=== PATIENT | male | born 1950 | race Caucasian/White ===

== ENCOUNTER → 2018-03-09 08:02 | Outpatient (CLI) | payer OTHER, SELFPAY ==
--- NOTE | 2018-03-09 | DI.US.S_ITS ---
PROCEDURE: US ABD AORTA ANEURYSM SCREEN INDICATIONS: SCREENING TECHNIQUE: Real time scanning was performed of the aorta and iliac arteries, with image documentation. COMPARISON: None. FINDINGS: Aorta: Proximal aortic diameter measures 2.0 cm. Mid-aorta measures 1.8 cm. Distal aortic diameter is 1.9 cm. Iliac arteries: Right common iliac artery measures 1.0 cm. Left common iliac artery measures 1.1 cm. IMPRESSION: No abdominal aortic aneurysm found, iliac arteries are normal in caliber, no dissection identified. Dictated by: Jey Dia M.D. on 03/09/2018 at 9:01 Approved by: Jey Dia M.D. on 03/09/2018 at 9:03
== END ==
PROVIDERS: Visit Provider Family Medicine
DX: Z13.6 Encounter for screening for cardiovascular disorders (principal)
CPT/HCPCS: 76706

== ENCOUNTER → 2019-03-08 14:29 | Outpatient (CLI) | payer OTHER, SELFPAY ==
[2019-03-08 15:11] LABS: Alanine Aminotransferase 47 IU/L (21-72); Albumin 4.4 g/dL (3.5-5.0); Albumin Globulin Ratio 1.6 (1.0-2.8); Alkaline Phosphatase 68 U/L (38-126); Aspartate Aminotransferase 34 IU/L (17-59); BUN Creatinine Ratio 22.2 (6-22); Bilirubin Total 0.4 mg/dL (0.2-1.3); Blood Urea Nitrogen 20 mg/dL (9-20); Calcium 9.3 mg/dL (8.4-10.2); Carbon Dioxide 26 mmol/L (22-32); Chloride 103 mmol/L (98-107); Creatine Kinase 360 U/L (55-170); Estimated Glomerular Filt Rate > 60.0 mL/min (>60); Globulin 2.7 g/dL (1.7-4.1); Glucose 87 mg/dL (80-110); HEMOLYSIS < 15 (0-50); Potassium 4.2 mmol/L (3.4-5.1); Sodium 138 mmol/L (137-145); Total Protein 7.1 g/dL (6.3-8.2)
[2019-03-08 15:15] LABS: High Sensitivity CRP - Cardiac 2.6 mg/L (1.0-3.0)
== END ==
PROVIDERS: Visit Provider Family Medicine
DX: I10 Essential (primary) hypertension (principal); E78.5 Hyperlipidemia, unspecified
CPT/HCPCS: 36415; 80053; 82550; 86140

== ENCOUNTER → 2019-04-19 10:18 | Outpatient (CLI) | payer OTHER, SELFPAY ==
[2019-04-19 11:11] LABS: Alanine Aminotransferase 59 IU/L (21-72); Albumin 4.6 g/dL (3.5-5.0); Albumin Globulin Ratio 1.8 (1.0-2.8); Alkaline Phosphatase 72 U/L (38-126); Aspartate Aminotransferase 46 IU/L (17-59); Bilirubin Total 0.8 mg/dL (0.2-1.3); Bilirubin Unconjugated 0.6 mg/dL (0.0-1.1); Cholesterol 182 mg/dL (140-199); Globulin 2.6 g/dL (1.7-4.1); HDL Cholesterol 56 mg/dL (40-60); HEMOLYSIS < 15 (0-50); LDL Cholesterol Calculated 112 mg/dL (<100); Total Protein 7.2 g/dL (6.3-8.2); Triglycerides 69 mg/dL (35-150)
== END ==
PROVIDERS: PCP Family Medicine; Visit Provider Family Medicine
DX: E78.5 Hyperlipidemia, unspecified (principal); I10 Essential (primary) hypertension
CPT/HCPCS: 36415; 80061; 80076

== ENCOUNTER → 2020-03-22 09:02 | Outpatient (CLI) | payer MEDICARE, SELFPAY ==
[2020-03-22 10:06] LABS: Alanine Aminotransferase 40 IU/L (<50); Albumin 4.6 g/dL (3.5-5.0); Albumin Globulin Ratio 1.5 (1.0-2.8); Alkaline Phosphatase 70 U/L (38-126); Aspartate Aminotransferase 34 IU/L (17-59); BUN Creatinine Ratio 20.5 (6-22); Bilirubin Total 0.6 mg/dL (0.2-1.3); Blood Urea Nitrogen 18 mg/dL (9-20); Calcium 9.5 mg/dL (8.4-10.2); Carbon Dioxide 28 mmol/L (22-32); Chloride 104 mmol/L (98-107); Cholesterol 190 mg/dL (140-199); Estimated Glomerular Filt Rate > 60.0 mL/min (>60); Glucose 95 mg/dL (80-110); HDL Cholesterol 49 mg/dL (40-60); HEMOLYSIS < 15 (0-50); LDL Cholesterol Calculated 111 mg/dL (<100); Potassium 4.3 mmol/L (3.4-5.1); Sodium 138 mmol/L (137-145); Total Protein 7.6 g/dL (6.3-8.2); Triglycerides 150 mg/dL (35-150)
[2020-03-23 11:10] LABS: PSA Free % 26.3 % (.); PSA, Total 0.8 ng/mL (0.0-4.0)
== END ==
PROVIDERS: PCP Family Medicine; Referring Provider Family Medicine; Visit Provider Family Medicine
DX: E78.5 Hyperlipidemia, unspecified (principal); Z13.1 Encounter for screening for diabetes mellitus; Z12.5 Encounter for screening for malignant neoplasm of prostate
CPT/HCPCS: 36415; 80053; 80061; 84153; 84154

== ENCOUNTER → 2020-11-26 11:53 | Outpatient (CLI) | payer MEDICARE, SELFPAY ==
--- NOTE | 2020-11-26 12:48 | DI.CT.S_ITS ---
PROCEDURE: CT CHEST WO CON INDICATIONS: Solitary pulmonary nodule TECHNIQUE: Noncontrast 5 mm thick sections acquired from the pulmonary apices to the posterior costophrenic angles. 1 mm lung window, 5 mm thick coronal and sagittal and 7 mm axial MIP reformats were then acquired. For radiation dose reduction, the following was used: automated exposure control, adjustment of mA and/or kV according to patient size. COMPARISON: [facility], CT, CT LOW DOSE LUNG CA SCREENING, 03/02/2019, 11:09. FINDINGS: Image quality: Excellent. Lungs and pleura: No acute air space opacities. No pleural effusions or pneumothorax. Central and peripheral airways are patent and normal in caliber. Mediastinum: Heart size is normal. No pericardial effusion. No mediastinal adenopathy by size criteria. Thoracic aorta and central pulmonary arteries are normal in size. Esophagus is normal in caliber. No hiatal hernia. Bones and chest wall: No suspicious bony lesions. No vertebral body compression fractures. No axillary or supraclavicular adenopathy by size criteria. Thyroid gland is unremarkable. Abdomen: Visualized upper abdominal solid organs and bowel loops appear normal in the absence of contrast. IMPRESSION: 1. No significant pulmonary nodule. Right upper lobe calcified granuloma. 2. No adenopathy. Recommend CT lung cancer screening in 12 months. Dictated by: Anthony Cordero M.D. on 11/26/2020 at 15:37 Approved by: Anthony Cordero M.D. on 11/26/2020 at 15:48
== END ==
PROVIDERS: PCP Family Medicine; Referring Provider Family Medicine; Visit Provider Family Medicine
DX: R91.1 Solitary pulmonary nodule (principal)
CPT/HCPCS: 71250

== ENCOUNTER → 2022-01-09 09:31 | Outpatient (CLI) | payer MEDICARE, SELFPAY ==
[2022-01-09 18:48] LABS: Cholesterol 201 mg/dL (140-199); Glucose 100 mg/dL (80-110); HDL Cholesterol 53 mg/dL (40-60); LDL Cholesterol Calculated 128 mg/dL (<100); Triglycerides 102 mg/dL (35-150)
[2022-01-09 19:16] LABS: Prostate Specific Antigen Scrn 1.01 ng/mL (0.1-4.0)
== END ==
PROVIDERS: PCP Family Medicine; Visit Provider Family Medicine
DX: Z00.00 Encounter for general adult medical examination without abnormal findings (principal); Z11.59 Encounter for screening for other viral diseases; Z12.11 Encounter for screening for malignant neoplasm of colon; Z12.5 Encounter for screening for malignant neoplasm of prostate; Z13.1 Encounter for screening for diabetes mellitus; Z13.220 Encounter for screening for lipoid disorders; Z71.85 Encounter for immunization safety counseling
CPT/HCPCS: 80061; 82947; G0103

== ENCOUNTER → 2022-04-21 10:13 | Outpatient (CLI) | payer MEDICARE, SELFPAY ==
[2022-04-21 20:52] LABS: COVID19 - ORCAS (NP or Nasal) Negative (Negative)
== END ==
PROVIDERS: PCP Family Medicine; Visit Provider Family Medicine
DX: Z01.812 Encounter for preprocedural laboratory examination (principal); Z20.822 Contact with and (suspected) exposure to COVID-19
CPT/HCPCS: C9803; U0003

== ENCOUNTER 2022-04-23 13:48 | Day surgery (SDC) | payer MEDICARE, SELFPAY ==
[2022-04-16 08:37] VITALS: BMI 27.6
[2022-04-23] VITALS (12 sets, daily range): BP systolic 94–133; BP diastolic 54–78; PULSE 49–96; RESP 9–16; TEMP 35.7–36.7; O2SAT 93–98; BMI 27.7
--- NOTE | 2022-04-23 | PATH_ITS ---
[facility] Accession Number: [id number] . 01 Material submitted: . hemorrhoids - HEMORRHOIDS . 01 Clinical history: . SDC UNILATERAL INGUINAL HERNIA, WITHOUT OBSTRUCTION UNSPECIFIED HEMORRHOIDS . 01 Diagnosis: Anus/Rectum, Hemorrhoidectomy: External and internal hemorrhoidal tissue. Negative for dysplasia and malignancy. MRV 04/29/2022 1641 Local . 01 Electronically signed: . Nubia Horn MD, Pathologist NPI- [id number] . 01 Gross description: . The specimen is received in formalin, labeled with the patient's name and hemorrhoids, and consists of three irregular, wrinkled, congested fragments of skin. The first measures 3.1 x 1.2 x 1.2 cm, and the margin is inked blue. The second fragment measures 2.6 x 1.5 x 1.0 cm, and the margin is inked green. The third fragment measures 2.0 x 2.0 x 1.0 cm, and the margin is inked black. Sectioning all three fragments reveals a morfin to congested cut surface. Extrusion Technician sections are submitted in cassettes A1-A3. ([id number]) /FRR 04/26/2022 1631 Local . 01 Pathologist provided ICD-10: K64.9 . 01 CPT . 621368 Performed at: 01 [facility] [address] [place] [address], [place], [place] [id number] MD Deny Vickers MD Phone: [phone]
[2022-04-23] MEDS: LACTATED RINGERS 1,000 ML 100 ML IV (14:31)
--- NOTE | 2022-04-23 15:25 | PM.PREOP ---
Pre-operative Note Interval Note History & Physical reviewed/Exam performed by Physician: Yes Changes to H&P: No
[2022-04-23] MEDS: CEFAZOLIN 2 GM/100 ML PREMIX 100 ML IV (15:40)
[2022-04-23] MEDS: BUPIVACAINE 0.25% (PF) VIAL 30 ML INJ (15:55)
[2022-04-23] MEDS: BUPIVACAINE LIPOSOME 266 MG/20 ML VIAL INJ (16:36)
--- NOTE | 2022-04-23 17:02 | SUR.OPER ---
For inguinal hernia repair = Supine on padded OR bed, head on pillow, arms secured on padded arm boards at <90 degrees abduction, legs uncrossed, safety belt at thigh. For hemorrhoidectomy = Lithotomy on padded OR bed, head on pillow, arms secured on padded arm boards at <90 degrees abduction. Legs secured in padded yellow fins stirrups.
--- NOTE | 2022-04-23 17:23 | PM.OP.1 ---
Operative Date/Time/Diagnoses Date of procedure: 04/23/22 Time of procedure: 17:23 Pre-op diagnosis: Left inguinal hernia, hemorrhoids Post-op diagnosis: same Procedure & Clinicians Procedure: Open left inguinal hernia repair with mesh, excisional hemorrhoidectomy Same procedure as scheduled: Yes Indications: Symptomatic left inguinal hernia and grade 3 internal hemorrhoids which have recurred since a prior ablation Surgeon: Gume Villanueva Click Yes if Unassisted: Yes Anesthesia Type: General Operative Notes Findings: Direct floor defect. Cord lipoma. Grade 3 internal hemorrhoids with external component right anterior, right posterior and left lateral columns Specimen(s): other (Hemorrhoids) Estimated Blood Loss (mL): 50 Procedure in detail: The patient was placed supine on the table and bilateral lower extremity compression devices were applied. Anesthesia was induced they were intubated with an LMA and received Ancef. A time-out was performed. They were prepped and draped in sterile fashion. The left external inguinal ring and the anterior superior iliac crest were identified and marked. 1 finger breath above the inguinal ligament the skin was infiltrated with 0.25% bupivacaine. The skin incision was made here and the subcutaneous tissues were divided with electrocautery exposing the external oblique aponeurosis which was then opened along the direction of its fibers. Using blunt dissection the internal oblique aporneurosis was from the external oblique upper leaflet. Using a kittner the cord was carefully dissected away from the inguinal canal adjacent to the pubic tubercle. The cord including the vas deferens, testicular bloody supply, ilioguinal and genital nerve were encircled with a Jakob drain. A direct floor defect was identified and it was reduced into the abdomen and the internal oblique aporneuorsis was approximated to the inguinal ligament with Ethibond suture to reapproximate the floor. The cremasteric fibers surrounding the cord were divided using electrocautery adjacent to the internal ring.. The vas deferens and the testicular vessels were preserved and protected. There was no indirect hernia there was a cord lipoma which was skeletonized away from the vas deferens and testicular blood supply. I selected a 7x 15 cm lightweight Pro Loop hernia mesh. The inferior medial aspect of the mesh was anchored to insertion of the rectus muscle to the pubic tubercle such that there was approximately 2 cm of tubercle overlap with Ethibond and then was run interrupted fashion along the inferior edge of the mesh to the shelving edge of the inguinal ligament. Interrupted 3 0 Vicryl suture was used to anchor the superior aspect of the mesh to the conjoined tendon in several places. The tails were then reapproximated loosely around the spermatic cord. The tails of the mesh were then tucked under the external oblique aponeurosis. The repair was checked for hemostasis. The wound was irrigated with sterile saline. The external oblique aponeurosis was reapproximated in a running fashion using 3 0 Vicryl. The subcutaneous tissues were reapproximated with 3 0 Vicryl skin closed with 4 0 Monocryl followed by the application of Dermabond. At the end of the operation I ensured that both testicles were within the scrotum. The sponge instrument count at the end operation was correct. Patient was then placed into lithotomy position. Rectal block was performed by injecting 20 mL of Exparel into the intersphincteric groove. An internal examination of the anal canal was made. The right anterior and right posterior and left lateral hemorrhoid pedicles freely prolapsed consistent with grade 3. Beginning with the left lateral pedicle it was grasped elevated and excised with electrocautery off the internal sphincter. The mucosal defect was then closed with a running 3-0 Vicyrl suture. Hemostasis was checked. The procedure was then repeated for the right anterior and posterior. The specimens were passed off the field. Wound was irrigated with saline. Gelfoam coated in Dibucaine ointment 1% was then placed into the anal canal. Sponge and instrument counts were correct at the end of the procedure. They emerged from anesthesia were extubated and transferred to the postoperative care unit in stable condition. Complications: none Post-operative Condition: stable Disposition: same day surgery
[2022-04-23] MEDS: HYDROMORPHONE 2 MG INJ IV (17:45)
[2022-04-23] MEDS: OXYCODONE IR 5 MG TABLET PO ×2 (17:51→18:21)
--- NOTE | 2022-04-23 19:10 | SUR.PHASEII ---
Patient ambulated to wheelchair with steady gait. Tolerated fluids. Provided written and verbal discharge instructions to patient and . Stated understanding. Discharged patient by wheelchair to private vehicle in stable condition.
== END 2022-04-23 19:03 | disposition home or self-care (01) ==
PROVIDERS: PCP Family Medicine; Referring Provider Surgery; Visit Provider Surgery
PROC: (CPT 49505; principal; 2022-04-23 15:15)
PROC: (CPT 49505; 2022-04-23 15:15)
DX: K40.90 Unilateral inguinal hernia, without obstruction or gangrene, not specified as recurrent (principal); K64.2 Third degree hemorrhoids; D17.6 Benign lipomatous neoplasm of spermatic cord; I10 Essential (primary) hypertension; K21.9 Gastro-esophageal reflux disease without esophagitis; J44.9 Chronic obstructive pulmonary disease, unspecified
CPT/HCPCS: 49505; 46260; 82962; C9290; J0690; J1100; J1170; J2250; J2405; J2704; J3010

== ENCOUNTER 2022-04-24 01:19 | Emergency (ER) | payer MEDICARE, SELFPAY ==
[2022-04-24 01:27] VITALS: BP 127/66; PULSE 63; RESP 18; TEMP 37; O2SAT 94; BMI 27.7
[2022-04-24 02:53] VITALS: PULSE 51; O2SAT 95
--- NOTE | 2022-04-24 02:59 | ED_ITS ---
HPI - Male Genitourinary General Chief complaint: Urogenital-Male Stated complaint: CANT URINATE Time Seen by Provider: 04/24/22 02:51 Source: patient Mode of arrival: Ambulatory History of Present Illness HPI Narrative: Patient is a 71-year-old male who presents with difficulty urinating. He had a open left inguinal hernia repair today along with hemorrhoidectomy. He said he was NPO the previous night after midnight. The surgery was not until 3 or 4:00 a.m. in the afternoon. He says since then he has been drinking some fluids he has urinated very small amounts 3 different times she was worried could he thought he saw blood any real abdominal pain. No fever or chills. Patient has had 2 cups of water while in the emergency department. He says he feels like it is stuck in his throat although his he is not vomiting and manag ing his own secretions. Related Data Home Medications Medication Instructions Recorded Confirmed amlodipine 2.5 mg tablet 2.5 mg PO DAILY 04/25/21 04/23/22 aspirin 81 mg tablet,delayed 81 mg PO DAILY 04/25/21 04/23/22 release (Adult Low Dose Aspirin) atorvastatin 10 mg tablet 10 mg PO DAILY 04/25/21 04/23/22 omeprazole magnesium 20 mg 20 mg PO DAILY 04/23/22 04/23/22 tablet,delayed release (Prilosec OTC) Previous Rx's Medication Instructions Recorded acetaminophen 325 mg capsule 650 mg PO QID PRN pain #60 caps 04/23/22 (Tylenol) docusate sodium 100 mg capsule 100 mg PO BID #40 caps 04/23/22 (Colace) ibuprofen 200 mg tablet 800 mg PO Q8HR #60 tabs 04/23/22 oxycodone 5 mg tablet 5 mg PO Q6H PRN pain #60 tabs 04/23/22 polyethylene glycol 3350 17 17 g PO DAILY #850 grams 04/23/22 gram/dose oral powder (Miralax) psyllium husk 3.4 gram/5.4 gram 1 tbsp PO BID #660 grams 04/23/22 oral powder (Metamucil) Allergies Allergy/AdvReac Type Severity Reaction Status Date / Time No Known Drug Allergies Allergy Verified 04/23/22 14:08 Review of Systems Review of Systems Narrative: GENERAL: Denies chills,fever HEENT: Denies throat pain RESPIRATORY: Denies dyspnea, cough, wheezing CARDIOVASCULAR: Denies chest pain, palpitations GASTROINTESTINAL: Denies nausea, vomiting : see HPI MUSCULOSKELETAL: Denies extremity pain, injury SKIN: No rash, no laceration, no pruritus NEUROLOGIC: Denies weakness, dizziness, headache, numbness 8 point review of systems is negative except for those stated above and HPI Patient History Medical History BPH (benign prostatic hyperplasia) BPH w urinary obs/LUTS Cervical vertebral fusion COPD with emphysema Encounter for general adult medical examination with abnormal findings Encounter for screening for lung cancer Family history of prostate cancer in father GERD (gastroesophageal reflux disease) HTN (hypertension) Hyperlipemia Left inguinal hernia Personal history of tobacco use Prostate cancer screening Pulmonary nodule Rectal bleeding Screening for diabetes mellitus Surgical History H/O colonoscopy H/O transurethral resection of prostate History of appendectomy Family History Brother CAD (coronary artery disease) Cancer Father Cancer Social History marital status: number of children: 2 household members: spouse occupational status: other Previous occupational history: retired leisure activities: exercise Smoking Status: Former smoker Tobacco: How many years used: 35 alcohol intake: current caffeine: Yes Smoking Status: Former smoker alcohol intake frequency: a few times a week Substance Use Type: does not use Exam Initial Vital Signs Initial Vital Signs: Vital Signs Temperature 98.6 F 04/24/22 01:27 Pulse Rate 63 04/24/22 01:27 Respiratory Rate 18 04/24/22 01:27 Blood Pressure 127/66 04/24/22 01:27 Pulse Oximetry 94 04/24/22 01:27 Oxygen Delivery Method 04/24/22 01:27 GENERAL: Alert 71-year-old HEENT: Head atraumatic,EOMI, pupils reactive, CARDIOVASCULAR: Regular rate and rhythm without murmurs, rubs or gallops. RESPIRATORY: Breath sounds equal bilaterally, no wheezes rales or rhonchi. ABDOMEN: Soft, nontender. Normoactive bowel sounds all 4 quadrants. No guarding or rebound. : No CVA tenderness, no suprapubic tenderness EXTREMITIES: Normal range of motion, no clubbing or edema. Neurovascularly intact NEUROLOGICAL: Alert and oriented x4. SKIN: Warm, dry, no laceration, no petechiae, no rashes or lesions. Incision sites clean and Course Vital Signs Vital signs: Vital Signs - 8 hr 04/24/22 01:27 Temperature 98.6 F Pulse Rate 63 Respiratory Rate 18 Blood Pressure 127/66 Pulse Oximetry 94 Oxygen Delivery Method Room Air MDM - Male Genitourinary MDM Narrative Medical decision making narrative: Patient finally did urinate 170 mL, no sign of infection. At this time I see no need for any blood work. He is tolerating oral fluids his abdomen is soft. Discharge Plan Departure Patient Disposition: Home Clinical Impression: Dehydration Instructions: Dehydration Activity Restrictions/Additional Instructions: *You have been diagnosed with dehydration *What to do: At this time patient drink as normal but do recommend increasing fluids with water and Gatorade. I anticipate they will start urinating normally soon Follow postoperative instructions *Continue to take medications as directed *Follow up with your primary care provider in 2-3 days or call [phone] *Return to ER if you should have inability to urinate, increasing abdominal pain fever or any new, worsening or concerning symptoms Prescriptions: No Action omeprazole magnesium [Prilosec OTC] 20 mg Tablet,Delayed Release (Dr/Ec) 20 mg PO DAILY ibuprofen 200 mg tablet 800 mg PO Q8HR Qty: 60 0RF docusate sodium [Colace] 100 mg capsule 100 mg PO BID Qty: 40 0RF oxycodone 5 mg tablet 5 mg PO Q6H PRN (Reason: pain) Qty: 60 0RF acetaminophen [Tylenol] 325 mg capsule 650 mg PO QID PRN (Reason: pain) Qty: 60 0RF Metamucil 3.4 gram/5.4 gram powder 1 tbsp PO BID Qty: 660 0RF Rx Instructions: mix into at least 8 oz of water or juice before administering polyethylene glycol 3350 [Miralax] 17 gram/dose powder 17 g PO DAILY Qty: 850 0RF amlodipine 2.5 mg tablet 2.5 mg PO DAILY atorvastatin 10 mg tablet 10 mg PO DAILY aspirin [Adult Low Dose Aspirin] 81 mg tablet,delayed release (DR/EC) 81 mg PO DAILY Referrals: Jared Wilkinson MD [Primary Care Provider] -
[2022-04-24 03:00] VITALS: BP 115/63; PULSE 59; O2SAT 95
[2022-04-24 03:30] VITALS: PULSE 53; O2SAT 95
[2022-04-24 03:34] VITALS: BP 118/63; O2SAT 95
== END 2022-04-24 03:37 | disposition home or self-care (01) ==
PROVIDERS: Emergency Provider Emergency Medicine; PCP Family Medicine
DX: E86.0 Dehydration (principal); R33.9 Retention of urine, unspecified
CPT/HCPCS: 51798; 81003; 99282; 99283

== ENCOUNTER → 2022-12-18 09:36 | Outpatient (CLI) | payer MEDICARE, SELFPAY ==
[2022-12-18 19:18] LABS: Add Manual Diff / Slide Review NO; Basophils Absolute Auto 100 /uL (0-100); Eosinophils Absolute Auto 400 /uL (0-450); Hematocrit 42.6 % (41-53); Hemoglobin 14.2 g/dL (13.5-17.5); Lymphocytes Absolute Auto 2000 /uL (1100-4500); Lymphocytes Percent Auto 31.8 % (25-40); Mean Corpuscular HGB Conc 33.4 % (30-36); Mean Corpuscular Hemoglobin 29.5 PG (26-34); Mean Corpuscular Volume 88.4 fL (80-100); Monocytes Absolute Auto 500 /uL (0-900); Monocytes Percent Auto 7.1 % (3-14); Neutrophils Absolute Auto 3500 /uL (1500-7000); Neutrophils Percent Auto 54.1 % (50-75); Platelet Count 309 X10^3/uL (150-400); Red Blood Cell Count 4.82 X10^6/uL (4.5-5.9); Red Cell Distribution Width 13.5 % (11.6-14.8); White Blood Cell Count 6.4 X10^3/uL (4.5-11.0)
[2022-12-18 19:33] LABS: Alanine Aminotransferase 43 IU/L (<50); Albumin 4.3 g/dL (3.5-5.0); Albumin Globulin Ratio 1.5 (1.0-2.8); Alkaline Phosphatase 72 U/L (38-126); Aspartate Aminotransferase 35 IU/L (17-59); BUN Creatinine Ratio 14.1 (6-22); Bilirubin Total 0.7 mg/dL (0.2-1.3); Blood Urea Nitrogen 13 mg/dL (9-20); Calcium 9.4 mg/dL (8.4-10.2); Carbon Dioxide 29 mmol/L (22-32); Chloride 104 mmol/L (98-107); Cholesterol 181 mg/dL (140-199); Estimated Glomerular Filt Rate > 60 mL/min (>60); Globulin 2.8 g/dL (1.7-4.1); Glucose 101 mg/dL (80-110); HDL Cholesterol 51 mg/dL (40-60); HEMOLYSIS < 15 (0-50); LDL Cholesterol Calculated 111 mg/dL (<100); Potassium 4.5 mmol/L (3.4-5.1); Sodium 138 mmol/L (137-145); Total Protein 7.1 g/dL (6.3-8.2); Triglycerides 97 mg/dL (35-150)
== END ==
PROVIDERS: PCP Family Medicine; Visit Provider Family Medicine
DX: E78.2 Mixed hyperlipidemia (principal); I10 Essential (primary) hypertension; K21.9 Gastro-esophageal reflux disease without esophagitis; N13.8 Other obstructive and reflux uropathy; N40.0 Benign prostatic hyperplasia without lower urinary tract symptoms; N40.1 Benign prostatic hyperplasia with lower urinary tract symptoms; Z80.42 Family history of malignant neoplasm of prostate
CPT/HCPCS: 80053; 80061; 85025

== ENCOUNTER → 2022-12-26 09:06 | Outpatient (CLI) | payer MEDICARE, SELFPAY ==
--- NOTE | 2022-12-26 09:07 | DI.CT.S_ITS ---
PROCEDURE: CT CHEST WO CON INDICATIONS: Low-dose CT chest for lung cancer screening TECHNIQUE: Noncontrast 2.0-2.5 mm thick sections acquired from the pulmonary apices to the posterior costophrenic angles. 7 mm thick axial MIP and 5 mm coronal and sagittal reformats were then acquired. A low radiation dose technique was utilized. COMPARISON: [facility], CT, CT LOW DOSE LUNG CA SCREENING, 03/02/2019, 11:09. [facility], CT, CT CHEST WO CON, 11/26/2020, 11:59. FINDINGS: Image quality: Diagnostic, given the low radiation dose technique. Lungs and pleura: No suspicious lung nodules. Mediastinum: Heart size is normal. No pericardial effusion. No mediastinal adenopathy by size criteria. Thoracic aorta and central pulmonary arteries are normal in size. Esophagus is normal in caliber. No hiatal hernia. Bones and chest wall: No suspicious bony lesions. No vertebral body compression fractures. No axillary or supraclavicular adenopathy by size criteria. Thyroid gland is normal. Abdomen: Visualized upper abdomen solid organs and bowel loops appear normal in the absence of contrast. IMPRESSION: 1. No suspicious lung nodules. ACR Lung RADS category 1. Recommend annual screening lung CT in 12 months. Fleischner Society criteria for SOLID lung nodule followup. Nodule size (mm)Low-risk patientHigh-risk patient<6 (single or multiple)No routine followup.Optional CT at 12 months. 6-8 (single or multiple)CT at 6-12 months, then optional CT at 18-24 mo.CT at 6-12 months, then CT at 18-24 months. >8 (single)CT at 3 months, PET-CT, or biopsy. Same as for low-risk pts. >8 (multiple)CT at 3-6 months, then optional CT at 18-24 mo.CT at 3-6 months, then CT at 18-24 months. Fleischner Society criteria for SUB-SOLID lung nodule followup. Solitary pure ground-glass nodules<6 mm (ground glass or part solid)No followup needed. 6 mm or larger (ground glass)CT at 6-12 months to confirm persistence, then CT every 2 years until 5 years.6 mm or larger (part solid)CT at 3-6 months to confirm persistence, then annual CT until 5 years if unchanged and solid component remains <6 mm. Multiple sub-solid nodules<6 mmCT at 3-6 months, then CT consider at 2 & 4 years for high risk patients. [address] at 3-6 months. Subsequent management based on most suspicious lesions. Recommendations do not apply to lung cancer screening, patients with immunosuppression, or patients with known primary cancer. Dictated by: Ca Gross M.D. on 12/26/2022 at 15:26 Approved by: Ca Gross M.D. on 12/26/2022 at 15:30
== END ==
PROVIDERS: PCP Family Medicine; Referring Provider Family Medicine; Visit Provider Family Medicine
DX: Z12.2 Encounter for screening for malignant neoplasm of respiratory organs (principal); Z87.891 Personal history of nicotine dependence
CPT/HCPCS: 71250

== ENCOUNTER → 2023-05-06 13:44 | Outpatient (CLI) | payer MEDICARE, SELFPAY ==
[2023-05-06 16:10] LABS: Prostate Specific Antigen 1.17 ng/mL (0.10-4.00)
== END ==
PROVIDERS: PCP Family Medicine; Referring Provider Specialist; Visit Provider Specialist
DX: N40.1 Benign prostatic hyperplasia with lower urinary tract symptoms (principal); N13.8 Other obstructive and reflux uropathy
CPT/HCPCS: 36415; 84153

== ENCOUNTER → 2024-01-04 08:29 | Outpatient (CLI) | payer MEDICARE, OTHER, SELFPAY ==
[2024-01-04 20:27] LABS: Add Manual Diff / Slide Review NO; Basophils Absolute Auto 100 /uL (0-100); Blood Urea Nitrogen 15 mg/dL (9-20); Calcium 8.8 mg/dL (8.4-10.2); Carbon Dioxide 26 mmol/L (22-32); Chloride 107 mmol/L (98-107); Cholesterol 170 mg/dL (140-199); Eosinophils Absolute Auto 700 /uL (0-450); Eosinophils Percent Auto 9.3 % (2-4); Estimated Glomerular Filt Rate > 60 mL/min (>60); Glucose 103 mg/dL (80-110); HDL Cholesterol 48 mg/dL (40-60); HEMOLYSIS 18 (0-50); Hematocrit 41.8 % (41-53); LDL Cholesterol Calculated 107 mg/dL (<100); Lymphocytes Absolute Auto 2500 /uL (1100-4500); Lymphocytes Percent Auto 31.7 % (25-40); Mean Corpuscular HGB Conc 33.5 % (30-36); Mean Corpuscular Hemoglobin 29.9 PG (26-34); Mean Corpuscular Volume 89.2 fL (80-100); Monocytes Absolute Auto 500 /uL (0-900); Monocytes Percent Auto 6.9 % (3-14); Neutrophils Absolute Auto 4000 /uL (1500-7000); Neutrophils Percent Auto 51.1 % (50-75); Platelet Count 286 X10^3/uL (150-400); Potassium 4.6 mmol/L (3.4-5.1); Red Blood Cell Count 4.68 X10^6/uL (4.5-5.9); Red Cell Distribution Width 13.5 % (11.6-14.8); Sodium 139 mmol/L (137-145); Triglycerides 75 mg/dL (35-150); White Blood Cell Count 7.8 X10^3/uL (4.5-11.0)
== END ==
PROVIDERS: PCP Family Medicine; Visit Provider Family Medicine
DX: I10 Essential (primary) hypertension (principal); E78.2 Mixed hyperlipidemia; N40.1 Benign prostatic hyperplasia with lower urinary tract symptoms; N13.8 Other obstructive and reflux uropathy
CPT/HCPCS: 80048; 80061; 85025

== ENCOUNTER → 2024-01-20 09:47 | Outpatient (CLI) | payer MEDICARE, OTHER, SELFPAY ==
--- NOTE | 2024-01-20 10:15 | DI.CT.S_ITS ---
PROCEDURE: CT LUNG LOW DOSE SCREENING INDICATIONS: history of smoking, lung cancer screening TECHNIQUE: Noncontrast 2.0-2.5 mm thick sections acquired from the pulmonary apices to the posterior costophrenic angles. 7 mm thick axial MIP, and 5 mm coronal and sagittal reformats were then acquired. For radiation dose reduction, the following was used: automated exposure control, adjustment of mA and/or kV according to patient size. COMPARISON: [facility], CT, CT CHEST WO [facility], 12/26/2022, 9:12. FINDINGS: Image quality: Diagnostic. Lower Neck: No enlarged lymph nodes. Thyroid: No thyroid nodules which require sonographic follow up, per consensus guidelines. Axillae: No enlarged lymph nodes. Chest Wall: Unremarkable. Bones: Mild degenerative changes of the spine. Lungs and Pleura: No pneumothorax or pleural effusions. Mild emphysematous changes. No consolidation or suspicious nodules. Heart: Heart size is normal. No pericardial effusion. Thoracic Vessels: The aorta and pulmonary arteries demonstrate normal size. Mild atherosclerotic vascular calcifications. Mediastinum and Heike: No enlarged lymph nodes. Esophagus: No wall thickening. No hiatal hernia. Upper Abdomen: Visualized upper abdomen solid organs and bowel loops appear normal. IMPRESSION: No suspicious pulmonary nodules. LUNG-RADS 1; continued annual screening, if eligible. Clinically Significant Non-pulmonary Findings: None. Dictated by: Tye Tejada M.D. on 01/20/2024 at 11:52 Approved by: Tye Tejada M.D. on 01/20/2024 at 12:02
== END ==
PROVIDERS: PCP Family Medicine; Referring Provider Family Medicine; Visit Provider Family Medicine
DX: F17.210 Nicotine dependence, cigarettes, uncomplicated (principal); Z12.2 Encounter for screening for malignant neoplasm of respiratory organs
CPT/HCPCS: 71271

== ENCOUNTER → 2024-06-16 08:47 | Outpatient (CLI) | payer MEDICARE, OTHER, SELFPAY | PROVIDERS: PCP Family Medicine; Referring Provider Urology; Visit Provider Urology | DX: N40.1 Benign prostatic hyperplasia with lower urinary tract symptoms (principal); N13.8 Other obstructive and reflux uropathy | CPT/HCPCS: 36415; 84153 ==

== ENCOUNTER → 2024-11-16 07:06 | Outpatient (CLI) | payer MEDICARE, OTHER, SELFPAY ==
--- NOTE | 2024-11-16 07:08 | DI.MRI.S_ITS ---
PROCEDURE: MR CERVICAL SPINE WO CON INDICATIONS: Weakness / pain left upper arm, shoulder extension abduction TECHNIQUE: Noncontrast sagittal T1 spin echo and T2 fast spin echo, sagittal STIR, foraminal oblique sagittal T2 fast spin echo, and axial gradient echo or T2 fast spin echo through the cervical spine. COMPARISON: None. FINDINGS: Image quality: Excellent. Alignment and Curvature: There is normal bony alignment. Bone Marrow: C5-C6 ACDF changes. Degenerative endplate changes, most pronounced at C6-C7. Marrow demonstrates normal overall signal. Spinal Cord: Visualized spinal cord has normal size and signal. No cerebellar tonsillar herniation. Paraspinous Soft Tissues: No paravertebral masses. Prevertebral soft tissues are normal in thickness. C2-C3: Mild disc desiccation and minimal posterior disc osteophyte complex. No central canal or neural foraminal stenosis. C3-C4: Disc desiccation and mild posterior disc osteophyte complex. Facet and uncovertebral arthropathy. No central canal stenosis. Mild to moderate bilateral neural foraminal stenosis. C4-C5: Disc desiccation and mild posterior disc osteophyte complex. Facet and uncovertebral arthropathy. Mild central canal stenosis. Moderate bilateral neural foraminal stenosis. C5-C6: ACDF changes. Facet and uncovertebral arthropathy. No central canal stenosis. Severe bilateral neural foraminal stenosis. C6-C7: Disc desiccation and moderate height loss. Mild posterior disc osteophyte complex. Facet and uncovertebral arthropathy. No significant central canal stenosis. Severe bilateral neural foraminal stenosis. C7-T1: Disc desiccation. Facet and uncovertebral arthropathy. No significant central canal or neural foraminal stenosis. IMPRESSION: 1. Multilevel degenerative changes of the cervical spine status post C5-C6 ACDF. 2. Mild central canal stenosis at C4-C5. Otherwise, no significant central canal stenosis. 3. Severe bilateral neural foraminal stenosis at C5-C6 and C6-C7. Dictated by: Tye Tejada M.D. on 11/16/2024 at 16:29 Approved by: Tye Tejada M.D. on 11/16/2024 at 16:32
== END ==
PROVIDERS: PCP Family Medicine; Referring Provider Family Medicine; Visit Provider Family Medicine
DX: M47.22 Other spondylosis with radiculopathy, cervical region (principal); M48.02 Spinal stenosis, cervical region; R29.898 Other symptoms and signs involving the musculoskeletal system; Z98.1 Arthrodesis status
CPT/HCPCS: 72141

== ENCOUNTER → 2025-02-04 08:53 | Outpatient (CLI) | payer MEDICARE, OTHER, SELFPAY ==
[2025-02-04 09:20] LABS: Add Manual Diff / Slide Review NO; Hematocrit 44.1 % (41-53); Hemoglobin 14.7 g/dL (13.5-17.5); Lymphocytes Absolute Auto 2000 /uL (1100-4500); Mean Corpuscular HGB Conc 33.3 % (30-36); Mean Corpuscular Hemoglobin 29.8 PG (26-34); Mean Corpuscular Volume 89.4 fL (80-100); Platelet Count 299 X10^3/uL (150-400)
[2025-02-04 10:04] LABS: Blood Urea Nitrogen 21 mg/dL (9-20); Calcium 9.6 mg/dL (8.4-10.2); Carbon Dioxide 29 mmol/L (22-32); Chloride 102 mmol/L (98-107); Estimated Glomerular Filt Rate > 60 mL/min (>60); Glucose 101 mg/dL (70-99); HEMOLYSIS < 15 (0-50); Potassium 4.7 mmol/L (3.4-5.1); Sodium 138 mmol/L (137-145)
== END ==
PROVIDERS: PCP Family Medicine; Referring Provider Family Medicine; Visit Provider Family Medicine
DX: Z12.5 Encounter for screening for malignant neoplasm of prostate (principal); R06.81 Apnea, not elsewhere classified; J44.9 Chronic obstructive pulmonary disease, unspecified; E78.2 Mixed hyperlipidemia; I10 Essential (primary) hypertension; N40.1 Benign prostatic hyperplasia with lower urinary tract symptoms; N13.8 Other obstructive and reflux uropathy
CPT/HCPCS: 36415; 80048; 85025; G0103

== ENCOUNTER → 2025-02-23 10:01 | Outpatient (CLI) | payer MEDICARE, OTHER, SELFPAY ==
[2025-02-23 19:42] LABS: Cholesterol 199 mg/dL (140-199); HDL Cholesterol 56 mg/dL (40-60); Triglycerides 83 mg/dL (35-150)
== END ==
PROVIDERS: PCP Family Medicine; Visit Provider Family Medicine
DX: E78.2 Mixed hyperlipidemia (principal)
CPT/HCPCS: 80061

== ENCOUNTER → 2025-03-09 15:53 | Outpatient (CLI) | payer MEDICARE, OTHER, SELFPAY ==
--- NOTE | 2025-03-09 15:55 | DI.MRI.S_ITS ---
PROCEDURE: MR SHOULDER LT WO CON INDICATIONS: Weakness of left shoulder TECHNIQUE: Noncontrast oblique coronal T2 fast spin echo with fat saturation, oblique sagittal T1 spin echo and T2 fast spin echo with fat saturation, axial T1 spin echo and T2 fast spin echo with fat saturation through the shoulder. COMPARISON: None. FINDINGS: Image quality: Excellent. Rotator cuff: Low-grade articular and bursal surface partial thickness tear involving anterior to mid fibers of distal supraspinatus at its insertion on humeral head extending to musculotendinous junction. Distal infraspinatus tendinosis is seen. Distal subscapularis tendinosis is also seen. No full-thickness rotator cuff tendon rupture. Sagittal images demonstrate no significant rotator cuff muscle atrophy. Bones and bursae: No bone marrow contusions or fractures. Mild to moderate acromioclavicular joint osteoarthritic changes are seen with joint space narrowing and downward osteophyte formation depressing on musculotendinous junction of supraspinatus. Type 2 acromion without an os acromiale. No pathologic subacromial-subdeltoid or subcoracoid bursal fluid is present. Capsule and soft tissues: Signal abnormality and fraying involving superior anterior glenoid labrum with adjacent small cystic area suggestive of superior anterior glenoid labral tear with perilabral cyst. Signal abnormality and fraying involving inferior glenoid labrum is also seen. The long head of the biceps tendon demonstrates normal location and morphology. The rotator interval appears normal, without fibrosis. The coracohumeral ligament is normal in thickness. IMPRESSION: 1. Low-grade articular and bursal surface partial thickness tear involving anterior to mid fibers of distal supraspinatus extending to musculotendinous junction. Distal infraspinatus and subscapularis tendinosis. No full-thickness rotator cuff tendon rupture. No significant muscle atrophy. 2. [id number] acromioclavicular joint osteoarthritis. No fracture or dislocation. No significant joint effusion or subacromial subdeltoid bursal fluid. 3. Finding is suggestive of subtle superior anterior glenoid labral tear with adjacent perilabral cyst formation. Suggestion of inferior glenoid labral tear. Dictated by: Rodo Donahue M.D. on 03/10/2025 at 13:11 Approved by: Rodo Donahue M.D. on 03/10/2025 at 13:25
== END ==
LOC: MRI 15:54
PROVIDERS: PCP Family Medicine; Referring Provider Orthopaedic Surgery; Visit Provider Orthopaedic Surgery
DX: M75.112 Incomplete rotator cuff tear or rupture of left shoulder, not specified as traumatic (principal); M19.012 Primary osteoarthritis, left shoulder; R29.898 Other symptoms and signs involving the musculoskeletal system
CPT/HCPCS: 73221

== ENCOUNTER → 2025-05-23 10:31 | Outpatient (CLI) | payer MEDICARE, OTHER, SELFPAY ==
[2025-05-23 13:08] LABS: Prostate Specific Antigen 1.55 ng/mL (0.10-4.00)
== END ==
PROVIDERS: PCP Family Medicine; Referring Provider Urology; Visit Provider Urology
DX: R97.20 Elevated prostate specific antigen [PSA] (principal)
CPT/HCPCS: 36415; 84153